=== PATIENT | female | born 1935 | race Caucasian/White ===

== ENCOUNTER 2023-04-22 14:40 | Observation (INO) | payer MEDICARE, OTHER, SELFPAY ==
--- NOTE | 2023-04-22 14:46 | CT_ITS ---
The [address] [address] Patient Name: KENNEDY BRITT MRN: [id number] date: 1935 Sex: F Assigned Patient Location: ER Current Patient Location: [place] Accession/Order Number: [id number] Exam Date: 04/22/2023 13:40 Report Date: 04/22/2023 20:05 At the request of: ASHWIN JEREZ Procedure: CT head/brain wo con EXAMINATION: CT head/brain wo con HISTORY: fall head injury COMPARISON: No relevant comparison available. TECHNIQUE: Axial CT images were obtained without IV contrast. Dose reduction techniques were achieved by using automated exposure control and/or adjustment of mA and/or kV according to patient size and/or use of iterative reconstruction technique. 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 No edema, hemorrhage, mass, acute infarction, or inappropriate atrophy. CSF SPACES: No hydrocephalus, subarachnoid hemorrhage, or mass. Appropriate for age. SKULL: No fracture, mass, or other significant visible lesion. SINUSES: No significant mucosal thickening or fluid on the limited views. ORBITS: No appreciable abnormality on the limited views. OTHER: Negative CT/CT head/brain wo con IMPRESSION: 1. No intercranial hemorrhage or appreciable acute abnormality. 2. Age consistent chronic changes. 3. No fracture of the calvarium or scalp hematoma. Preliminary findings were provided to the emergency department at time of imaging. Electronically authenticated by: SANFORD ESQUEDA Date: 04/22/2023 20:05
--- NOTE | 2023-04-22 14:46 | CT_ITS ---
The [address] [address] Patient Name: KENNEDY BRITT MRN: [id number] date: 1935 Sex: F Assigned Patient Location: ER Current Patient Location: [place] Accession/Order Number: [id number] Exam Date: 04/22/2023 13:40 Report Date: 04/22/2023 20:06 At the request of: ASHWIN JEREZ Procedure: CT cervical spine wo con EXAMINATION: CT cervical spine wo con HISTORY: fall COMPARISON: No relevant comparison available. TECHNIQUE: Axial, Coronal, and Sagittal images were created without IV contrast. Dose reduction techniques were achieved by using automated exposure control and/or adjustment of mA and/or kV according to patient size and/or use of iterative reconstruction technique. FINDINGS: VERTEBRAL BODIES: FACET JOINTS: Multilevel moderate-marked degenerative changes. No disruption or abnormal widening. DISCS: Mild narrowing C4-5 with posterior disc-osteophyte complex causing mild/moderate central canal and foraminal narrowing. CENTRAL CANAL: No evidence of hemorrhage. PARASPINAL AREA: No visible mass. CT/CT cervical spine wo con IMPRESSION: 1. No acute bone abnormality. 2. Multilevel degenerative changes of cervical spine. Preliminary findings were provided to the emergency department at time of imaging. Electronically authenticated by: SANFORD ESQUEDA Date: 04/22/2023 20:06
--- NOTE | 2023-04-22 14:46 | XR_ITS ---
The [address] [address] Patient Name: KENNEDY BRITT MRN: [id number] date: 1935 Sex: F Assigned Patient Location: ED.MAIN Current Patient Location: [place] Accession/Order Number: [id number] Exam Date: 04/22/2023 15:45 Report Date: 04/22/2023 20:34 At the request of: ASHWIN JEREZ Procedure: XR chest 1V EXAMINATION: XR chest 1V HISTORY: fall COMPARISON: No relevant comparison available. FINDINGS: LUNGS: Obscuration of the left lung base suspected to be secondary to the large cardiac silhouette. No convincing infiltrates. VASCULATURE: No increased pulmonary vasculature. PLEURA: No pneumothorax, effusion, or pleural thickening. CARDIAC: Cardiomegaly. MEDIASTINUM: No visible mass or adenopathy. BONES: No fracture or visible bone lesion. OTHER: Negative. XR/XR chest 1V IMPRESSION: 1. Underexpanded lungs. 2. No convincing acute cardiopulmonary process. Limited evaluation of left lung base due to cardiomegaly. Preliminary findings were provided to the emergency department at time of imaging. Electronically authenticated by: SANFORD ESQUEDA Date: 04/22/2023 20:34
[2023-04-22 14:48] VITALS: BP 130/75; PULSE 78; RESP 24; TEMP 36.4; O2SAT 95; BMI 28.2
--- NOTE | 2023-04-22 14:51 | ED_ITS ---
Documented by User: ZAINA Chavez 04/22/23 17:40 HPI - General Adult General Chief complaint: Fall Stated complaint: FELL Time Seen by Provider: 04/22/23 14:45 History of Present Illness HPI narrative: patient is a 87-year-old female presents to the Emergenncy Room from home for evaluation of injuries status post fall. Patient was last seen yesterday around 4:30 PM. She was found shortly prior to arrival by her son and home health professional. The patient is DNR CC for history of congestive heart failure. The patient has notable bruising to the right ankle, she denies any pain and is alert and oriented to her name only. Patient converses but has some slurred speech which care provider states is normal. She is in hospice care at home and has been managing well independently. Patient currently denies any chest pain or shortness of breath. She was found incontinent of stool and urine, unable to stand. Patient has abrasions to her forehead. Shortly after arrival by EMS the patient began vomiting a coffee-ground type emesis, but patient denies doing this at home prior to arrival. She denies any dark tarry stools. Location: Reports head and lower extremity Radiation: Reports non-radiation Associated symptoms: Reports confusion and nausea/vomiting Related Data Home Medications Medication Instructions Recorded Confirmed albuterol sulfate 2.5 mg/3 mL 2.5 mg continuous nebulization Q4H 04/22/23 04/22/23 (0.083 %) solution for nebulization PRN shortness of breath or wheezing furosemide 40 mg tablet 40 mg PO DAILY 04/22/23 04/22/23 potassium chloride 10 mEq 10 meq PO QDAY 04/22/23 04/22/23 capsule,extended release Allergies Allergy/AdvReac Type Severity Reaction Status Date / Time No Known Drug Allergies Allergy Verified 04/22/23 14:47 Review of Systems ROS Status of ROS unobtainable due to mental status [facility] Medical History (Updated 04/22/23 @ 20:15 by Rosalba Farmer) Family History (Updated 04/22/23 @ 20:16 by Rosalba Farmer) Mother Family history of diabetes mellitus Social History (Updated 04/22/23 @ 20:18 by Rosalba Farmer) Within the past year, how often did you have a drink containing alcohol: never Score interpretation: A score less than 3 is consistent with normal alcohol consumption. Smoking status: Never smoker Non-prescribed substance use: denies use Previous occupational history: homemaker Known occupational exposures/hazards: No Highest level of school completed/degree received: high school graduate Do you want help with school or training: No Are you now , , , , never or living with a partner: In a typical week, how many times do you talk on the telephone with family, friends, or neighbors: 3 or more times per week How often do you get together with friends or relatives: 3 or more times per week How often do you attend congregation or zoroastrian services: never Do you belong to any clubs or organizations such as congregation groups unions, [employer] or athletic groups, or school groups: no Total score: 1 Score interpretation: A score of less than or equal to 1 indicates the most socially isolated. Little interest or pleasure in doing things: not at all Feeling down, depressed, or hopeless: not at all Feel stressed/tense/nervous/anxious/difficulty sleeping: not at all Life stressors: unknown source of stress Due to disability, difficulty making decisions: No Do you think of yourself as: straight/heterosexual Gender Identity: female Exam Narrative Exam Narrative: Nurses notes and vital signs reviewed and patient is not hypoxic. General: The patient appears well, but began vomiting shortly after arrival. Patient alert easily responsive to conversation stimuli. Skin: Warm, dry, no pallor noted. Head: Normocephalic, bruising to the left ear and abrasion to the right forehead. Neck: Supple, trachea mid-line, no tenderness, no lymphadenopathy, patient denies pain. Eye: Pupils are equal, round and reactive to light, EOMI, suspect cataract surgery Ears, Nose, Mouth, and Throat: no intraoral laceration, external inspection unremarkable other than bruising around the left ear. Cardiovascular: Regular Rate and Rhythm Respiratory: Patient is in no distress, no accessory muscle use, lungs are clear to auscultation, no wheezing, rales or rhonchi. Chest Wall: no tenderness Back: non-tender, no CVA tenderness Musculoskeletal: tiny nontender bruise right anterior knee, patient has notable bruising suspected crepitus right ankle on palpation, no pain with gentle log r olling of the hips bilaterally. Left foot and ankle unremarkable. Patient has areas of bruising, unsure of timing to the bilateral upper extremities but is moving all his with no significant pain or discomfort. GI: Normal bowel sounds, no tenderness to palpation, no masses appreciated. No rebound, guarding, or rigidity noted. Neurological: patient alert to her name, pleasantly confused with slurred speech, noted to be normal per care provider that called and report. Psychiatric: Cooperative Constitutional Vital Signs, click to edit/add: Last Vital Signs Temp 97.8 F 04/23/23 04:19 Pulse 83 04/23/23 04:19 Resp 18 04/23/23 04:19 BP 145/72 H 04/23/23 04:19 Pulse Ox 90 L 04/23/23 04:42 O2 Del Method Nasal Cannula 04/23/23 04:42 O2 Flow Rate 2 04/23/23 04:42 Course Vital Signs Vital signs: Vital Signs Temperature 97.6 F 04/22/23 14:48 Pulse Rate 78 04/22/23 14:48 Respiratory Rate 24 04/22/23 14:48 Blood Pressure 130/75 H 04/22/23 14:48 Pulse Oximetry 95 04/22/23 14:48 Oxygen Delivery Method Room Air 04/22/23 14:48 Temperature 97.8 F 04/23/23 04:19 Pulse Rate 83 04/23/23 04:19 Respiratory Rate 18 04/23/23 04:19 Blood Pressure 145/72 H 04/23/23 04:19 Pulse Oximetry 90 L 04/23/23 04:42 Oxygen Delivery Method Nasal Cannula 04/23/23 04:42 Oxygen Delivery Flow Rate 2 04/23/23 04:42 Medical Decision Making [facility] Narrative Medical decision making narrative: EMS advise patient DNR CC for congestive heart failure condition. Patient had unwitnessed fall at home, was lying on the ground simply for some time given the amount of bruising and swelling to the right ankle. It is less than twenty-four hours given the time last seen. Patient will be given a small fluid bolus of five hundred mL's pending laboratory studies. We will get an x-ray of the right ankle and CT of the head and neck given recent fall. Care provider from home advised that her hospice care may need to be revoked if she is admitted for further evaluation or workup. This will be discussed with patient and family, son identifying his primary care provider in the home. Patient medicated with 4 mg Zofran for nausea and comfort, Gastroccult pending, but Protonix 40 mg IV administered. Morphine 4mg IV for pain. hemoglobin stable, discussed laboratory studies gastric occult was positive. Patient appears in no distress. Localized pain to the right ankle. Patient's daughter who is her POA and guardian along with the son who participates in her health care per taken aside to discuss the patient's findings and situation. The patient is currently DNR CC with hospice in the home. The son states they have been trying to get her into a care center, and she does not currently have a family doctor only hospice physician prescribing Lasix. The patient has also had a decline in mentation over the past few weeks which they feel may be related to many strokes. We discussed with the patient's fracture it is typically treated with surgical intervention if she has to walk as she did prior to her fall. Patient also noted to have coffee-ground emesis and occult positive blood. We discussed the workup involved with these and they would like a period of observation to see if the patient rapidly declined's as they are unable to care for her in the home safely and do not feel that she would want any interventions or surgical procedures.They are agreeable to IV fluids and IV pain medication and IV Protonix. The patient be placed in a [place] boot, neurovascular intact status post application.[employer] project manager was consulted to make them aware of fx and pt's condition and family situation. patient's case discussed with Dr. Josue who is aware of fx and pt's wishes. agreeable to consult. Dr. Santiago will be paged for admission acceptance, patient's family verbalized that they are okay with her hospice coverage been revoked during her hospital stay but request that she remain DNR CC Lab Data Labs: Lab Results 04/22/23 04/22/23 04/22/23 Range/Units 13:06 15:00 15:06 WBC 14.2 H (4.0-11.0) 10^3/uL RBC 4.76 (4.20-5.40) 10^6/uL Hgb 15.0 (12.0-16.0) g/dL Hct 44.9 (36.0-48.0) % MCV 94.3 (81.0-99.0) fL MCH 31.5 (26.7-34.0) pg MCHC 33.4 (29.9-35.2) g/dL RDW 13.0 (11.0-15.0) % Plt Count 252 (150-450) 10^3/uL MPV 9.5 (9.5-13.5) fL Neut % (Auto) 85.7 H (43.0-75.0) % Lymph % (Auto) 6.3 L (20.5-60.0) % Barber % (Auto) 7.4 (1.7-12.0) % Eos % (Auto) 0.1 L (0.9-7.0) % Baso % (Auto) 0.1 L (0.2-2.0) % Neut # (Auto) 12.2 H (1.4-6.5) 10^3/uL Lymph # (Auto) 0.9 L (1.2-3.8) 10^3/uL Barber # (Auto) 1.1 H (0.3-0.8) 10^3/uL Eos # (Auto) 0.0 (0.0-0.7) 10^3/uL Baso # (Auto) 0.0 (0.0-0.1) 10^3/uL Abs Immat Gran (auto) 0.05 H (0.00-0.03) 10^3/uL Imm/Tot Granulo (auto) 0.4 (0.0-0.5) % Sodium 137 (136-145) mmol/L Potassium 3.8 (3.5-5.1) mmol/L Chloride 100 (98-107) mmol/L Carbon Dioxide 28.3 (21.0-32.0) mmol/L Anion Gap 12.5 BUN 20.0 H (7.0-18.0) mg/dL Creatinine 1.65 H (0.55-1.02) mg/dL Est GFR ( Amer) 36 L (>=60) Est GFR (Non-Af Amer) 29 L (>=60) BUN/Creatinine Ratio 12.1 Glucose 213 H (74-106) mg/dL Calcium 9.2 (8.5-10.1) mg/dL Myoglobin 815 H* (9-82) ng/mL Lipase 40.0 L (73.0-393.0) U/L Urine Color (YELLOW) Urine Clarity (CLEAR) Urine pH (5.0-9.0) Ur Specific [place] (1.005-1.025) Urine Protein (NEG/TRACE) mg/dL Urine Glucose (UA) (NEGATIVE) mg/dL Urine Ketones (NEGATIVE) mg/dL Urine Occult Blood (NEGATIVE) Urine Nitrite (NEGATIVE) Urine Bilirubin (NEGATIVE) Urine Urobilinogen (0.2-1.0) EU/dL Ur Leukocyte Esterase (NEGATIVE) Urine RBC (0-2) #/HPF Urine WBC (NONE SEEN) #/HPF Ur Squamous Epith Cells (NONE/RARE) #/LPF Urine Crystals (None Seen) #/HPF Urine Bacteria (NONE SEEN) #/HPF Urine Casts (NONE SEEN) #/LPF Urine Mucus (NONE SEEN) Ur Culture Indicated? Gastric Fluid pH 5-7 Gastric Occult Blood Postive 04/22/23 Range/Units 17:16 WBC (4.0-11.0) 10^3/uL RBC (4.20-5.40) 10^6/uL Hgb (12.0-16.0) g/dL Hct (36.0-48.0) % MCV (81.0-99.0) fL MCH (26.7-34.0) pg MCHC (29.9-35.2) g/dL RDW (11.0-15.0) % Plt Count (150-450) 10^3/uL MPV (9.5-13.5) fL Neut % (Auto) (43.0-75.0) % Lymph % (Auto) (20.5-60.0) % Barber % (Auto) (1.7-12.0) % Eos % (Auto) (0.9-7.0) % Baso % (Auto) (0.2-2.0) % Neut # (Auto) (1.4-6.5) 10^3/uL Lymph # (Auto) (1.2-3.8) 10^3/uL Barber # (Auto) (0.3-0.8) 10^3/uL Eos # (Auto) (0.0-0.7) 10^3/uL Baso # (Auto) (0.0-0.1) 10^3/uL Abs Immat Gran (auto) (0.00-0.03) 10^3/uL Imm/Tot Granulo (auto) (0.0-0.5) % Sodium (136-145) mmol/L Potassium (3.5-5.1) mmol/L Chloride (98-107) mmol/L Carbon Dioxide (21.0-32.0) mmol/L Anion Gap BUN (7.0-18.0) mg/dL Creatinine (0.55-1.02) mg/dL Est GFR ( Amer) (>=60) Est GFR (Non-Af Amer) (>=60) BUN/Creatinine Ratio Glucose (74-106) mg/dL Calcium (8.5-10.1) mg/dL Myoglobin (9-82) ng/mL Lipase (73.0-393.0) U/L Urine Color Yellow (YELLOW) Urine Clarity Turbid A (CLEAR) Urine pH 7.0 (5.0-9.0) Ur Specific [place] 1.030 A (1.005-1.025) Urine Protein Color interference A (NEG/TRACE) mg/dL Urine Glucose (UA) Color interference A (NEGATIVE) mg/dL Urine Ketones Color interference A (NEGATIVE) mg/dL Urine Occult Blood Color interference A (NEGATIVE) Urine Nitrite Color interference A (NEGATIVE) Urine Bilirubin Color interference A (NEGATIVE) Urine Urobilinogen Color interference A (0.2-1.0) EU/dL Ur Leukocyte Esterase Large A (NEGATIVE) Urine RBC 2-5 A (0-2) #/HPF Urine WBC >100 A (NONE SEEN) #/HPF Ur Squamous Epith Cells Few A (NONE/RARE) #/LPF Urine Crystals None seen (None Seen) #/HPF Urine Bacteria Moderate A (NONE SEEN) #/HPF Urine Casts None seen (NONE SEEN) #/LPF Urine Mucus Moderate A (NONE SEEN) Ur Culture Indicated? Yes Gastric Fluid pH Gastric Occult Blood PROCEDURE: CT CERVICAL SPINE WO CON COMPARISON: None. INDICATIONS: fall FINDINGS: Bones: No fracture, bone lesion, or significant listhesis. Facets: Multilevel moderate-marked degenerative facet arthropathy. No disruption or abnormal widening. Discs: Mild narrowing C4-5 with disc osteophyte complex causing mild-moderate central canal and foraminal narrowing. CONCLUSION: 1. No acute bone abnormality. 2. Multilevel degenerative changes of cervical spine. Dictated by: Vickey Brown M.D. on 04/22/2023 at 16:25 Approved by: Vickey Brown M.D. on 04/22/2023 at 16:34 PROCEDURE: CT HEAD/BRAIN WO CON COMPARISON: None. INDICATIONS: fall head injury FINDINGS: No intracranial hemorrhage, midline shift, or mass effect. Old lacune infarction within the left basal ganglia. Atrophy and age consistent chronic small vessel ischemic changes. No fracture of the calvarium or scalp hematoma. Paranasal sinuses are clear. CONCLUSION: 1. No intracranial hemorrhage or appreciable acute abnormality. 2. 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 3. Age consistent atrophy and chronic small vessel ischemic changes. 4. No fracture. Dictated by: Vickey Brown M.D. on 04/22/2023 at 16:18 Approved by: Vickey Brown M.D. on 04/22/2023 at 16:25 PROCEDURE: XR CHEST 1V COMPARISON: None. INDICATIONS: fall FINDINGS: Lungs: Obscuration of the left lung base suspected to be secondary to the large cardiac silhouette. No convincing infiltrates. Pleura: No pneumothorax or convincing pleural effusion. Heart: Cardiomegaly. No prior study for comparison. Mediastinum: No abnormal widening. CONCLUSION: 1. Under expanded lungs. 2. No convincing acute cardiopulmonary process. Limited evaluation of left lung base due to cardiomegaly. Dictated by: Vickey Brown M.D. on 04/22/2023 at 16:12 Approved by: Vickey Brown M.D. on 04/22/2023 at 16:18 PROCEDURE: XR ANKLE RT MIN 3V COMPARISON: None. INDICATIONS: pain FINDINGS: Acute, transverse fracture through the medial malleolus and lateral malleolus with slight lateral subluxation of the talar dome in relation to the tibial plafond. No appreciable fracture of the posterior malleolus. Prominent soft tissue swelling surrounding the ankle. CONCLUSION: 1. Acute mildly displaced bimalleolar fractures with slight lateral subluxation of the ankle joint. Unstable ankle. Dictated by: Vickey Brown M.D. on 04/22/2023 at 16:10 Approved by: Vickey Brown M.D. on 04/22/2023 at 16:12 Discharge Plan Discharge Chief Complaint: Fall Clinical Impression: Gastrointestinal bleed, Bimalleolar fracture of right ankle, Unwitnessed fall Patient Disposition: Admitted as Observation Time of Disposition Decision: 16:58 Condition: Serious Discharge Date/Time: 04/22/23 18:55 Documented by User: Ellie Huff MD 04/23/23 09:12 HPI - General Adult General Chief complaint: Fall Stated complaint: FELL Time Seen by Provider: 04/22/23 14:45 Related Data Home Medications Medication Instructions Recorded Confirmed albuterol sulfate 2.5 mg/3 mL 2.5 mg continuous nebulization Q4H 04/22/23 04/22/23 (0.083 %) solution for nebulization PRN shortness of breath or wheezing furosemide 40 mg tablet 40 mg PO DAILY 04/22/23 04/22/23 potassium chloride 10 mEq 10 meq PO QDAY 04/22/23 04/22/23 capsule,extended release Allergies Allergy/AdvReac Type Severity Reaction Status Date / Time No Known Drug Allergies Allergy Verified 04/22/23 14:47 [facility] Medical History (Updated 04/22/23 @ 20:15 by Rosalba Farmer) Family History (Updated 04/22/23 @ 20:16 by Rosalba Farmer) Mother Family history of diabetes mellitus Social History (Updated 04/22/23 @ 20:18 by Rosalba Farmer) Within the past year, how often did you have a drink containing alcohol: never Score interpretation: A score less than 3 is consistent with normal alcohol consumption. Smoking status: Never smoker Non-prescribed substance use: denies use Previous occupational history: homemaker Known occupational exposures/hazards: No Highest level of school completed/degree received: high school graduate Do you want help with school or training: No Are you now , , , , never or living with a partner: In a typical week, how many times do you talk on the telephone with family, friends, or neighbors: 3 or more times per week How often do you get together with friends or relatives: 3 or more times per week How often do you attend congregation or zoroastrian services: never Do you belong to any clubs or organizations such as congregation groups unions, fraternal or athletic groups, or school groups: no Total score: 1 Score interpretation: A score of less than or equal to 1 indicates the most socially isolated. Little interest or pleasure in doing things: not at all Feeling down, depressed, or hopeless: not at all Feel stressed/tense/nervous/anxious/difficulty sleeping: not at all Life stressors: unknown source of stress Due to disability, difficulty making decisions: No Do you think of yourself as: straight/heterosexual Gender Identity: female Exam Constitutional Vital Signs, click to edit/add: Last Vital Signs Temp 97.8 F 04/23/23 04:19 Pulse 83 04/23/23 04:19 Resp 18 04/23/23 04:19 BP 145/72 H 04/23/23 04:19 Pulse Ox 90 L 04/23/23 04:42 O2 Del Method Nasal Cannula 04/23/23 04:42 O2 Flow Rate 2 04/23/23 04:42 Course Vital Signs Vital signs: Vital Signs Temperature 97.6 F 04/22/23 14:48 Pulse Rate 78 04/22/23 14:48 Respiratory Rate 24 04/22/23 14:48 Blood Pressure 130/75 H 04/22/23 14:48 Pulse Oximetry 95 04/22/23 14:48 Oxygen Delivery Method Room Air 04/22/23 14:48 Temperature 97.8 F 04/23/23 04:19 Pulse Rate 83 04/23/23 04:19 Respiratory Rate 18 04/23/23 04:19 Blood Pressure 145/72 H 04/23/23 04:19 Pulse Oximetry 90 L 04/23/23 04:42 Oxygen Delivery Method Nasal Cannula 04/23/23 04:42 Oxygen Delivery Flow Rate 2 04/23/23 04:42 Medical Decision Making MDM Narrative Medical decision making narrative: EMS advise patient DNR CC for congestive heart failure condition. Patient had unwitnessed fall at home, was lying on the ground simply for some time given the amount of bruising and swelling to the right ankle. It is less than twenty-four hours given the time last seen. Patient will be given a small fluid bolus of five hundred mL's pending laboratory studies. We will get an x-ray of the right ankle and CT of the head and neck given recent fall. Care provider from home advised that her hospice care may need to be revoked if she is admitted for further evaluation or workup. This will be discussed with patient and family, son identifying his primary care provider in the home. Patient medicated with 4 mg Zofran for nausea and comfort, Gastroccult pending, but Protonix 40 mg IV administered. Morphine 4mg IV for pain. hemoglobin stable, discussed laboratory studies gastric occult was positive. Patient appears in no distress. Localized pain to the right ankle. Patient's daughter who is her POA and guardian along with the son who participates in her health care per taken aside to discuss the patient's findings and situation. The patient is currently DNR CC with hospice in the home. The son states they have been trying to get her into a care center, and she does not currently have a family doctor only hospice physician prescribing Lasix. The patient has also had a decline in mentation over the past few weeks which they feel may be related to many strokes. We discussed with the patient's fracture it is typically treated w ith surgical intervention if she has to walk as she did prior to her fall. Patient also noted to have coffee-ground emesis and occult positive blood. We discussed the workup involved with these and they would like a period of observation to see if the patient rapidly declined's as they are unable to care for her in the home safely and do not feel that she would want any interventions or surgical procedures.They are agreeable to IV fluids and IV pain medication and IV Protonix. The patient be placed in a [place] boot, neurovascular intact status post application.[employer]able [employer] project manager was consulted to make them aware of fx and pt's condition and family situation. patient's case discussed with Dr. Josue who is aware of fx and pt's wishes. agreeable to consult. Dr. Santiago will be paged for admission acceptance, patient's family verbalized that they are okay with her hospice coverage been revoked during her hospital stay but request that she remain DNR CC Attending physician attestation I have seen and evaluated this patient. I have reviewed the mid-level provider?s documentation medical decision making and treatment plan. I agree with the mid- level provider?s assessment, and plan. Lab Data Labs: Lab Results 04/22/23 04/22/23 04/22/23 Range/Units 13:06 15:00 15:06 WBC 14.2 H (4.0-11.0) 10^3/uL RBC 4.76 (4.20-5.40) 10^6/uL Hgb 15.0 (12.0-16.0) g/dL Hct 44.9 (36.0-48.0) % MCV 94.3 (81.0-99.0) fL MCH 31.5 (26.7-34.0) pg MCHC 33.4 (29.9-35.2) g/dL RDW 13.0 (11.0-15.0) % Plt Count 252 (150-450) 10^3/uL MPV 9.5 (9.5-13.5) fL Neut % (Auto) 85.7 H (43.0-75.0) % Lymph % (Auto) 6.3 L (20.5-60.0) % Barber % (Auto) 7.4 (1.7-12.0) % Eos % (Auto) 0.1 L (0.9-7.0) % Baso % (Auto) 0.1 L (0.2-2.0) % Neut # (Auto) 12.2 H (1.4-6.5) 10^3/uL Lymph # (Auto) 0.9 L (1.2-3.8) 10^3/uL Barber # (Auto) 1.1 H (0.3-0.8) 10^3/uL Eos # (Auto) 0.0 (0.0-0.7) 10^3/uL Baso # (Auto) 0.0 (0.0-0.1) 10^3/uL Abs Immat Gran (auto) 0.05 H (0.00-0.03) 10^3/uL Imm/Tot Granulo (auto) 0.4 (0.0-0.5) % Sodium 137 (136-145) mmol/L Potassium 3.8 (3.5-5.1) mmol/L Chloride 100 (98-107) mmol/L Carbon Dioxide 28.3 (21.0-32.0) mmol/L Anion Gap 12.5 BUN 20.0 H (7.0-18.0) mg/dL Creatinine 1.65 H (0.55-1.02) mg/dL Est GFR ( Amer) 36 L (>=60) Est GFR (Non-Af Amer) 29 L (>=60) BUN/Creatinine Ratio 12.1 Glucose 213 H (74-106) mg/dL Calcium 9.2 (8.5-10.1) mg/dL Myoglobin 815 H* (9-82) ng/mL Lipase 40.0 L (73.0-393.0) U/L Urine Color (YELLOW) Urine Clarity (CLEAR) Urine pH (5.0-9.0) Ur Specific [place] (1.005-1.025) Urine Protein (NEG/TRACE) mg/dL Urine Glucose (UA) (NEGATIVE) mg/dL Urine Ketones (NEGATIVE) mg/dL Urine Occult Blood (NEGATIVE) Urine Nitrite (NEGATIVE) Urine Bilirubin (NEGATIVE) Urine Urobilinogen (0.2-1.0) EU/dL Ur Leukocyte Esterase (NEGATIVE) Urine RBC (0-2) #/HPF Urine WBC (NONE SEEN) #/HPF Ur Squamous Epith Cells (NONE/RARE) #/LPF Urine Crystals (None Seen) #/HPF Urine Bacteria (NONE SEEN) #/HPF Urine Casts (NONE SEEN) #/LPF Urine Mucus (NONE SEEN) Ur Culture Indicated? Gastric Fluid pH 5-7 Gastric Occult Blood Postive 04/22/23 Range/Units 17:16 WBC (4.0-11.0) 10^3/uL RBC (4.20-5.40) 10^6/uL Hgb (12.0-16.0) g/dL Hct (36.0-48.0) % MCV (81.0-99.0) fL MCH (26.7-34.0) pg MCHC (29.9-35.2) g/dL RDW (11.0-15.0) % Plt Count (150-450) 10^3/uL MPV (9.5-13.5) fL Neut % (Auto) (43.0-75.0) % Lymph % (Auto) (20.5-60.0) % Barber % (Auto) (1.7-12.0) % Eos % (Auto) (0.9-7.0) % Baso % (Auto) (0.2-2.0) % Neut # (Auto) (1.4-6.5) 10^3/uL Lymph # (Auto) (1.2-3.8) 10^3/uL Barber # (Auto) (0.3-0.8) 10^3/uL Eos # (Auto) (0.0-0.7) 10^3/uL Baso # (Auto) (0.0-0.1) 10^3/uL Abs Immat Gran (auto) (0.00-0.03) 10^3/uL Imm/Tot Granulo (auto) (0.0-0.5) % Sodium (136-145) mmol/L Potassium (3.5-5.1) mmol/L Chloride (98-107) mmol/L Carbon Dioxide (21.0-32.0) mmol/L Anion Gap BUN (7.0-18.0) mg/dL Creatinine (0.55-1.02) mg/dL Est GFR ( Amer) (>=60) Est GFR (Non-Af Amer) (>=60) BUN/Creatinine Ratio Glucose (74-106) mg/dL Calcium (8.5-10.1) mg/dL Myoglobin (9-82) ng/mL Lipase (73.0-393.0) U/L Urine Color Yellow (YELLOW) Urine Clarity Turbid A (CLEAR) Urine pH 7.0 (5.0-9.0) Ur Specific [place] 1.030 A (1.005-1.025) Urine Protein Color interference A (NEG/TRACE) mg/dL Urine Glucose (UA) Color interference A (NEGATIVE) mg/dL Urine Ketones Color interference A (NEGATIVE) mg/dL Urine Occult Blood Color interference A (NEGATIVE) Urine Nitrite Color interference A (NEGATIVE) Urine Bilirubin Color interference A (NEGATIVE) Urine Urobilinogen Color interference A (0.2-1.0) EU/dL Ur Leukocyte Esterase Large A (NEGATIVE) Urine RBC 2-5 A (0-2) #/HPF Urine WBC >100 A (NONE SEEN) #/HPF Ur Squamous Epith Cells Few A (NONE/RARE) #/LPF Urine Crystals None seen (None Seen) #/HPF Urine Bacteria Moderate A (NONE SEEN) #/HPF Urine Casts None seen (NONE SEEN) #/LPF Urine Mucus Moderate A (NONE SEEN) Ur Culture Indicated? Yes Gastric Fluid pH Gastric Occult Blood Discharge Plan Discharge Chief Complaint: Fall Clinical Impression: Gastrointestinal bleed, Bimalleolar fracture of right ankle, Unwitnessed fall Patient Disposition: Admitted as Observation Time of Disposition Decision: 16:58 Condition: Serious Discharge Date/Time: 04/22/23 18:55
[2023-04-22] MEDS: ONDANSETRON 4 MG RAPDIS TABLET SL (15:11)
[2023-04-22] MEDS: PANTOPRAZOLE SODIUM 40 MG VIAL IV (15:11)
[2023-04-22] MEDS: 0.9 % SODIUM CHLORIDE 500 ML 999 ML IV (15:12)
[2023-04-22 15:21] LABS: Anion Gap 12.5; BUN Creatinine Ratio 12.1; Basophils Percent Auto 0.1 % (0.2-2.0); Calcium 9.2 mg/dL (8.5-10.1); Carbon Dioxide 28.3 mmol/L (21.0-32.0); Chloride 100 mmol/L (98-107); Eosinophils Percent Auto 0.1 % (0.9-7.0); Estimated GFR (African America 36 (>=60); Estimated GFR (Non-African Ame 29 (>=60); Glucose 213 mg/dL (74-106); Hematocrit 44.9 % (36.0-48.0); Immature Granulocytes Abs Auto 0.05 10^3/uL (0.00-0.03); Immature Granulocytes Pct Auto 0.4 % (0.0-0.5); Lymphocytes Absolute Auto 0.9 10^3/uL (1.2-3.8); Lymphocytes Percent Auto 6.3 % (20.5-60.0); Mean Corpuscular HGB Conc 33.4 g/dL (29.9-35.2); Mean Corpuscular Hemoglobin 31.5 pg (26.7-34.0); Mean Corpuscular Volume 94.3 fL (81.0-99.0); Mean Platelet Volume 9.5 fL (9.5-13.5); Monocytes Absolute Auto 1.1 10^3/uL (0.3-0.8); Monocytes Percent Auto 7.4 % (1.7-12.0); Neutrophils Absolute Auto 12.2 10^3/uL (1.4-6.5); Neutrophils Percent Auto 85.7 % (43.0-75.0); Platelet Count 252 10^3/uL (150-450); Potassium 3.8 mmol/L (3.5-5.1); Red Blood Count 4.76 10^6/uL (4.20-5.40); Sodium 137 mmol/L (136-145); White Blood Count 14.2 10^3/uL (4.0-11.0)
[2023-04-22 15:31] LABS: Internal Control Within Normal Limits; Occult Blood Gastric Fluid POSTIVE
--- NOTE | 2023-04-22 15:55 | XR_ITS ---
The [address] [address] Patient Name: KENNEDY BRITT MRN: [id number] date: 1935 Sex: F Assigned Patient Location: ED.MAIN Current Patient Location: [place] Accession/Order Number: [id number] Exam Date: 04/22/2023 15:45 Report Date: 04/22/2023 21:07 At the request of: ASWHIN JEREZ Procedure: XR ankle RT min 3V PROCEDURE: XR ankle RT min 3V HISTORY: pain COMPARISON: None. FINDINGS: BONES:Acute transverse fracture through the medial malleolus and lateral malleolus with slight lateral subluxation of the talar dome in relation to the tibial plafond. No appreciable fracture of the posterior malleolus. SOFT TISSUES:Prominent soft tissue swelling surrounding the ankle. EFFUSION:None visible. OTHER: Negative. XR/XR ankle RT min 3V IMPRESSION: 1. Acute mildly displaced bimalleolar fractures with slight lateral subluxation of the ankle joint. Unstable ankle. Preliminary findings were provided to the emergency department at time of imaging. Electronically authenticated by: SANFORD ESQUEDA Date: 04/22/2023 21:07
[2023-04-22] MEDS: MORPHINE SULFATE 4 MG/ML VIAL (17:20)
[2023-04-22 17:23] VITALS: BP 149/89; PULSE 70; RESP 16; TEMP 36.4; O2SAT 90
[2023-04-22 17:48] LABS: Bilirubin Urine COLOR INTERFERENCE (NEGATIVE); Clarity Urine TURBID (CLEAR); Color Urine YELLOW (YELLOW); Glucose Urine UA COLOR INTERFERENCE mg/dL (NEGATIVE); Ketones Urine COLOR INTERFERENCE mg/dL (NEGATIVE)
[2023-04-22 17:49] LABS: Bacteria Urine MODERATE #/HPF (NONE SEEN); Blood Urine COLOR INTERFERENCE (NEGATIVE); Leukocyte Esterase Urine LARGE (NEGATIVE); Nitrite Urine COLOR INTERFERENCE (NEGATIVE); Protein Urine COLOR INTERFERENCE mg/dL (NEG/TRACE); Urine Microscopic Indicated YES; Urobilinogen Urine COLOR INTERFERENCE EU/dL (0.2-1.0); WBC Urine >100 #/HPF (NONE SEEN)
[2023-04-22 17:50] LABS: Cast Seen? NONE SEEN #/LPF (NONE SEEN); Crystals Seen? None Seen #/HPF (None Seen); Mucus Urine MODERATE (NONE SEEN); Squamous Epithelial Cell Urine FEW #/LPF (NONE/RARE); Urine Culture Indicated YES
[2023-04-22 17:53] LABS: Myoglobin 815 ng/mL (9-82)
[2023-04-22 19:00] VITALS: BP 149/79; PULSE 73; RESP 14; O2SAT 95
[2023-04-22 19:26] VITALS: BMI 35.6
[2023-04-22 19:39] VITALS: BP 162/81; PULSE 82; RESP 18; TEMP 36.3; O2SAT 98
[2023-04-22 20:26] VITALS: O2SAT 85
[2023-04-22] MEDS: LACTATED RINGER'S SOLUTION 1,000 ML 50 ML IV (20:53)
[2023-04-22] MEDS: TRAMADOL HCL 50 MG TABLET PO (20:53)
[2023-04-22 21:00] VITALS: O2SAT 96
[2023-04-22 21:14] LABS: Basophils Percent Auto 0.2 % (0.2-2.0); Hematocrit 42.6 % (36.0-48.0); Hemoglobin 14.1 g/dL (12.0-16.0); Immature Granulocytes Abs Auto 0.07 10^3/uL (0.00-0.03); Immature Granulocytes Pct Auto 0.5 % (0.0-0.5); Lymphocytes Absolute Auto 1.1 10^3/uL (1.2-3.8); Lymphocytes Percent Auto 7.6 % (20.5-60.0); Mean Corpuscular HGB Conc 33.1 g/dL (29.9-35.2); Mean Corpuscular Hemoglobin 31.2 pg (26.7-34.0); Mean Corpuscular Volume 94.2 fL (81.0-99.0); Mean Platelet Volume 9.5 fL (9.5-13.5); Monocytes Absolute Auto 1.2 10^3/uL (0.3-0.8); Monocytes Percent Auto 7.8 % (1.7-12.0); Neutrophils Absolute Auto 12.6 10^3/uL (1.4-6.5); Neutrophils Percent Auto 83.9 % (43.0-75.0); Platelet Count 214 10^3/uL (150-450); Red Blood Count 4.52 10^6/uL (4.20-5.40); Red Cell Distribution Width 13.2 % (11.0-15.0)
[2023-04-23] MEDS: TEMAZEPAM 15 MG CAPSULE PO (01:29)
[2023-04-23] MEDS: ACETAMINOPHEN 500 MG TABLET 1000 MG PO (01:29)
[2023-04-23 04:19] VITALS: BP 145/72; PULSE 83; RESP 18; TEMP 36.6; O2SAT 93
--- NOTE | 2023-04-23 04:31 | PC.NURSE ---
WEIGHT WITH BOOT 83.2KG, WEIGHT WHILE BOOT HELD 78.4KG
[2023-04-23 04:42] VITALS: O2SAT 90
[2023-04-23 04:59] LABS: Basophils Percent Auto 0.2 % (0.2-2.0); Hematocrit 40.3 % (36.0-48.0); Hemoglobin 13.2 g/dL (12.0-16.0); Immature Granulocytes Abs Auto 0.05 10^3/uL (0.00-0.03); Immature Granulocytes Pct Auto 0.3 % (0.0-0.5); Lymphocytes Absolute Auto 1.7 10^3/uL (1.2-3.8); Mean Corpuscular HGB Conc 32.8 g/dL (29.9-35.2); Mean Corpuscular Hemoglobin 31.2 pg (26.7-34.0); Mean Corpuscular Volume 95.3 fL (81.0-99.0); Mean Platelet Volume 9.7 fL (9.5-13.5); Monocytes Percent Auto 6.6 % (1.7-12.0); Neutrophils Absolute Auto 12.4 10^3/uL (1.4-6.5); Neutrophils Percent Auto 81.9 % (43.0-75.0); Platelet Count 209 10^3/uL (150-450); Red Blood Count 4.23 10^6/uL (4.20-5.40); Red Cell Distribution Width 13.3 % (11.0-15.0); White Blood Count 15.2 10^3/uL (4.0-11.0)
[2023-04-23 05:35] LABS: INR 0.97; Partial Thromboplastin Time 24.2 sec (22.3-36.2); Prothrombin Time 10.3 sec (9.0-11.6)
[2023-04-23 05:55] LABS: Alanine Aminotransferase 15 U/L (14-59); Albumin Globulin Ratio 0.6; Albumin Level 2.5 g/dL (3.4-5.0); Alkaline Phosphatase 82 U/L (46-116); Anion Gap 10.1; Aspartate Amino Transferase 32 U/L (15-37); Bilirubin Total 0.8 mg/dL (0.2-1.0); Calcium 8.8 mg/dL (8.5-10.1); Carbon Dioxide 29.7 mmol/L (21.0-32.0); Chloride 106 mmol/L (98-107); Estimated GFR (African America 36 (>=60); Estimated GFR (Non-African Ame 30 (>=60); Globulin 4.5 g/dL; Glucose 184 mg/dL (74-106); Potassium 3.8 mmol/L (3.5-5.1); Sodium 142 mmol/L (136-145)
--- NOTE | 2023-04-23 09:44 | PM.HP ---
H&P: HPI History of Present Illness Chief complaint: FELL GI BLEED Narrative: patient is an 87 y.o white female with end stage heart failure on hospice at home. She has been living independently until 3-4 weeks ago when her son feels she suffered stroke and has been more weak, had a fall yesterday and was found down on her floor. Taken to the ER for right bi-malleolar fracture, boot placed. She is less responsive per family. They wish to just keep her comfortable, no surgical interventions. Review of Systems ROS Narrative unable to obtain due to patients mental status PFSH PFSH Medical History Family History Mother Family history of diabetes mellitus Social History Within the past year, how often did you have a drink containing alcohol: never Score interpretation: A score less than 3 is consistent with normal alcohol consumption. Smoking status: Never smoker Non-prescribed substance use: denies use Previous occupational history: homemaker Known occupational exposures/hazards: No Highest level of school completed/degree received: high school graduate Do you want help with school or training: No Are you now , , , , never or living with a partner: In a typical week, how many times do you talk on the telephone with family, friends, or neighbors: 3 or more times per week How often do you get together with friends or relatives: 3 or more times per week How often do you attend restoration or mandaeism services: never Do you belong to any clubs or organizations such as restoration groups unions, fraternal or athletic groups, or school groups: no Total score: 1 Score interpretation: A score of less than or equal to 1 indicates the most socially isolated. Little interest or pleasure in doing things: not at all Feeling down, depressed, or hopeless: not at all Feel stressed/tense/nervous/anxious/difficulty sleeping: not at all Life stressors: unknown source of stress Due to disability, difficulty making decisions: No Do you think of yourself as: straight/heterosexual Gender Identity: female Meds Home Medications and Allergies Home Medications Medication Instructions Recorded Confirmed Type albuterol sulfate 2.5 mg/3 mL 2.5 mg continuous nebulization Q4H 04/22/23 04/22/23 History (0.083 %) solution for nebulization PRN shortness of breath or wheezing furosemide 40 mg tablet 40 mg PO DAILY 04/22/23 04/22/23 History potassium chloride 10 mEq 10 meq PO QDAY 04/22/23 04/22/23 History capsule,extended release Allergies Allergy/AdvReac Type Severity Reaction Status Date / Time No Known Drug Allergies Allergy Verified 04/22/23 14:47 Exam Narrative Exam Narrative: General: Patient is not alert or oriented to person, place and time Head: atraumatic, acephalic Eyes: PERRLA, no nystagmus present, conjunctiva clear, no scleral icterus Heart: Normal rate and rhythm, no murmurs/rubs/gallops Lungs: no audible wheezes, crackles and normal breath sounds all lung varela Abdomen: Normal audible bowel sounds, no distension, No palpable masses, no organomegaly, no rebound/guarding/ or rigidity Musculoskeletal: no swelling bilateral lower extremities, right foot/ankle with boot in place Vascular: Normal carotid, radial, femoral, posterior tibial, and dorsalis pedis pulses Lymph: no supraclavicular, axillary, or anterior/posterior cervical adenopathy Neuro: responds to stimuli Constitutional Vital Signs, click to edit/add: Last Vital Signs Temp 97.8 F 04/23/23 04:19 Pulse 83 04/23/23 04:19 Resp 18 04/23/23 04:19 BP 145/72 H 04/23/23 04:19 Pulse Ox 90 L 04/23/23 04:42 O2 Del Method Nasal Cannula 04/23/23 04:42 O2 Flow Rate 2 04/23/23 04:42 Results Labs Labs: Short CBC 04/22/23 04/22/23 04/23/23 Range/Units 13:06 20:05 04:30 WBC 14.2 H 15.0 H 15.2 H (4.0-11.0) 10^3/uL Hgb 15.0 14.1 13.2 (12.0-16.0) g/dL Hct 44.9 42.6 40.3 (36.0-48.0) % Plt Count 252 214 209 (150-450) 10^3/uL BMP 04/22/23 04/23/23 13:06 04:30 Sodium 137 142 Potassium 3.8 3.8 Chloride 100 106 Carbon Dioxide 28.3 29.7 BUN 20.0 H 26.0 H Creatinine 1.65 H 1.63 H Glucose 213 H 184 H Calcium 9.2 8.8 Liver Function 04/23/23 Range/Units 04:30 Total Bilirubin 0.8 (0.2-1.0) mg/dL AST 32 (15-37) U/L ALT 15 (14-59) U/L Alkaline Phosphatase 82 (46-116) U/L Albumin 2.5 L (3.4-5.0) g/dL Urine 04/22/23 Range/Units 17:16 Urine Color Yellow (YELLOW) Urine Clarity Turbid A (CLEAR) Urine pH 7.0 (5.0-9.0) Ur Specific [place] 1.030 A (1.005-1.025) Urine Protein Color interference A (NEG/TRACE) mg/dL Urine Glucose (UA) Color interference A (NEGATIVE) mg/dL Assessment and Plan Assessment and Plan (1) Bimalleolar fracture of right ankle: Assessment and Plan: pain control, with oral morphine (2) CHF (congestive heart failure): Assessment and Plan: continue lasix and potassium replacement (3) Unwitnessed fall: Plan patient is a DNR CC, hospice inpatient consult and status comfort care only discharge tuesday to the [facility]
[2023-04-23 11:05] VITALS: O2SAT 88
[2023-04-23] MEDS: MORPHINE SULFATE 100 MG/5 ML SOLUTION 10 MG PO ×3 (13:12→21:29)
[2023-04-23] MEDS: LORAZEPAM 0.5 MG TABLET PO ×2 (17:05→23:30)
[2023-04-23 20:19] VITALS: O2SAT 96
--- NOTE | 2023-04-23 20:19 | RESP.RT ---
Pt unable to do PEP.
--- NOTE | 2023-04-23 23:39 | PC.NURSE ---
When nurse came on shift and did first assessment around 1929. Family stated 'if she takes her oxygen off, don't force in on her, don't tape it to her face. Let nature take it's course. . At 2119 nurse in room and administered oral morphine per family request. Patient awake and refusing to wear oxygen. Spo2 at this time is 90% on room air. Again family member states don't force the oxygen on her, just let nature take it's course. Nurse in room at 2334 oral ativan cruhed in small amount water and administered. Family member in room asked nurse to come back in a few minutes and retry oxygen. Sp02 80% on room air at this time. Dr. John Reyesch aware of pulse ox and family's wishes not to force oxygen on patient.
[2023-04-24 01:37] VITALS: PULSE 67; RESP 16; O2SAT 96
--- NOTE | 2023-04-24 01:38 | PC.NURSE ---
spo2 66% on room air. patient asleep. Oxygen 3L/nc applied to patient nares. Spo2 up to 77%. nasal cannula placed in patient's mouth (patient is a mouth breather). spo2 up to 96%. Will keep nasal cannula in place as long as patient allows.
[2023-04-24 02:26] VITALS: O2SAT 98
[2023-04-24 04:38] VITALS: O2SAT 98
[2023-04-24 05:41] VITALS: BP 124/70; PULSE 71; RESP 16; TEMP 36.7; O2SAT 98
[2023-04-24] MEDS: FUROSEMIDE 40 MG TABLET PO (09:11)
[2023-04-24] MEDS: POTASSIUM CHLORIDE 10 MEQ ER TABLET PO (09:11)
[2023-04-24] MEDS: LORAZEPAM 0.5 MG TABLET PO ×2 (09:11→23:57)
[2023-04-24] MEDS: MORPHINE SULFATE 100 MG/5 ML SOLUTION 10 MG PO ×3 (09:14→22:25)
--- NOTE | 2023-04-24 09:27 | P.PN_ITS ---
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 She has been living independently until 3-4 weeks ago when her son feels she suffered? stroke and has been more weak, had a fall and was found down on her floor. Taken to the ER has right bi-malleolar fracture, boot placed. She is less responsive per family. They wish to just keep her comfortable, no surgical interventions. resting, no acute discomfort. Comfort care measures only. Plan to go to [facility] tomorrow with hospice. Exam Narrative Exam Narrative: General: Patient is not alert or oriented to person, place and time Head: atraumatic, acephalic Eyes: PERRLA, no nystagmus present, conjunctiva clear, no scleral icterus Heart: irregular rate and rhythm, no murmurs/rubs/gallops Lungs: no audible wheezes, crackles and normal breath sounds all lung varela Abdomen: Normal audible bowel sounds, no distension, No palpable masses, no o rganomegaly, no rebound/guarding/ or rigidity Musculoskeletal:? no swelling bilateral lower extremities, right foot/ankle with boot in place Vascular: Normal carotid, radial, femoral, posterior tibial, and dorsalis pedis pulses Lymph: no supraclavicular, axillary, or anterior/posterior cervical adenopathy Neuro: responds to stimuli Constitutional Vital Signs, click to edit/add: Last Vital Signs Temp 98.1 F 04/24/23 05:41 Pulse 71 04/24/23 05:41 Resp 16 04/24/23 05:41 BP 124/70 H 04/24/23 05:41 Pulse Ox 98 04/24/23 05:41 O2 Del Method Nasal Cannula 04/24/23 05:41 O2 Flow Rate 3 04/24/23 05:41 Progress Note: A&P Assessment and Plan (1) Bimalleolar fracture of right ankle: Assessment and Plan: pain control, with oral morphine (2) CHF (congestive heart failure): Assessment and Plan: continue lasix and potassium replacement (3) Unwitnessed fall: Plan patient is a DNR CC, hospice inpatient consult and status comfort care only discharge tuesday to the [facility], no lab draws, limited vitals
[2023-04-24 15:09] VITALS: BP 111/71; PULSE 87; RESP 12; O2SAT 84
[2023-04-24 15:11] VITALS: O2SAT 90
--- NOTE | 2023-04-24 15:12 | RESP.RT ---
Patient is physically unable to complete PEP therapy
[2023-04-25] MEDS: MORPHINE SULFATE 100 MG/5 ML SOLUTION 10 MG PO ×3 (02:38→10:32)
[2023-04-25 03:00] VITALS: PULSE 89; RESP 20; O2SAT 80
[2023-04-25 06:00] VITALS: PULSE 71; RESP 16; TEMP 35.8; O2SAT 81
[2023-04-25 07:00] VITALS: BP 114/77
--- NOTE | 2023-04-25 09:04 | P.DS_ITS ---
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 She has been living independently until 3-4 weeks ago when her son feels she suffered? stroke and has been more weak, had a fall and was found down on her floor. Taken to the ER has right bi-malleolar fracture, boot placed. She is less responsive per family. They wish to just keep her comfortable, no surgical interventions. resting, no acute discomfort. Comfort care measures only. Plan to go to [facility] tomorrow with hospice. continued hospice medications Status at Discharge Functional status at discharge: bed bound Time Spent with Patient Time attestation: Total time spent providing and/or coordinating discharge services: Exam Narrative Exam Narrative: General: Patient is not alert or oriented to person, place and time Head: atraumatic, acephalic Eyes: PERRLA, no nystagmus present, conjunctiva clear, no scleral icterus Heart: irregular rate and rhythm, no murmurs/rubs/gallops Lungs: no audible wheezes, crackles and normal breath sounds all lung varela Abdomen: Normal audible bowel sounds, no distension, No palpable masses, no organomegaly, no rebound/guarding/ or rigidity Musculoskeletal:? no swelling bilateral lower extremities, right foot/ankle with boot in place Vascular: Normal carotid, radial, femoral, posterior tibial, and dorsalis pedis pulses Lymph: no supraclavicular, axillary, or anterior/posterior cervical adenopathy Neuro: responds to stimuli Constitutional Vital Signs, click to edit/add: Last Vital Signs Temp 96.4 F L 04/25/23 06:00 Pulse 71 04/25/23 06:00 Resp 16 04/25/23 06:00 BP 114/77 04/25/23 07:00 Pulse Ox 81 L 04/25/23 06:00 O2 Del Method Room Air 04/25/23 06:00 O2 Flow Rate 3 04/24/23 05:41 DS: Data Data Completed and Pending Labs on day of discharge: Labs from last 24 hours 04/22/23 20:05 H. pylori IgG Antibody 0.31 Discharge Plan Discharge Disposition: Hospice - Medical Facility Condition: Serious Discharge Medications: New morphine concentrate 100 mg/5 mL (20 mg/mL) Solution 10 mg PO Q4H PRN (Reason: Severe Pain) 30 Days Qty: 15 0RF lorazepam 0.5 mg Tablet 0.5 mg PO Q4H PRN (Reason: Agitation) Qty: 20 0RF hyoscyamine sulfate 0.125 mg Tablet, Sublingual 0.125 mg sublingual QID PRN (Reason: Cramping) Qty: 20 0RF Continued albuterol sulfate 2.5 mg /3 mL (0.083 %) solution for nebulization 2.5 mg continuous nebulization Q4H PRN (Reason: shortness of breath or wheezing) furosemide 40 mg tablet 40 mg PO DAILY potassium chloride 10 mEq capsule, extended release 10 meq PO QDAY [employer] G[employer]/Hr Internship Instructions: Discharge to [facility] senior living with [facility] Forms: Portal Instructions Follow Up Appointments: Report called to Gabriella at [facility] at 11:50 Discharge location: discharge to [facility] under [facility] care
--- NOTE | 2023-04-25 10:33 | SWNOTE1 ---
SW called and spoke with [facility] and they made pt GIP here on 04/23/23 at 3:00 pm. SW notified billing. 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 Pt's son does work at [employer]. SW spoke with son to make sure family is aware that it is private pay, they did voice understanding and will pay. SW waiting to make sure pt is accepted to [facility] and then will call Hopsice back and arrange time.
[2023-04-25] MEDS: LORAZEPAM 0.5 MG TABLET PO (12:09)
--- NOTE | 2023-04-25 12:29 | CM.NOTE ---
Rounds made with Dr. Chavez, pt will discharge to [facility] today with hospice.
--- NOTE | 2023-04-25 12:43 | SWNOTE1 ---
[facility] set up transport, [facility] will be here around 12:30. SW sent over dc orders and packet is ready.
--- NOTE | 2023-04-25 12:43 | SWNOTE1 ---
Pt is going to [facility] ocean transportation intermediary with [facility].
--- NOTE | 2023-04-25 12:44 | CM.NOTE ---
Medicare Outpatient Observation Notice discussed with pt's son and daughter, pt is unresponsive at this time. Both son and daughter verbalize understanding and sign paper. Original given to pt and copy placed on pt's chart.
== END 2023-04-25 12:56 | disposition hospice, inpatient (51) ==
LOC: ER 17:46 → MS 19:13
PROVIDERS: Family Medicine; Personal Emergency Response Attendant; Admitting Provider Family Medicine; Emergency Provider Emergency Medicine; Visit Provider Family Medicine
DX: S82.841A Displaced bimalleolar fracture of right lower leg, initial encounter for closed fracture (principal); I50.84 End stage heart failure; I50.42 Chronic combined systolic (congestive) and diastolic (congestive) heart failure; Z66 Do not resuscitate; K92.2 Gastrointestinal hemorrhage, unspecified; Z79.899 Other long term (current) drug therapy; W19.XXXA Unspecified fall, initial encounter
CPT/HCPCS: 36415; 51702; 70450; 71045; 72125; 73610; 80048; 80053; 81003; 81015; 82271; 83690; 83874; 85025; 85610; 85730; 86677; 87086; 94668; 94761; 96374; 99285; G0378